=== PATIENT | female | born 1960 ===

== ENCOUNTER 2019-09-08 15:04 | Inpatient (IN) ==
[2019-09-08] MEDS ORDERED: ACETAMINOPHEN 325 MG TABLET PO PRN (20:04)
[2019-09-08] MEDS ORDERED: ONDANSETRON 4 MG/2 ML VIAL IV PRN (20:04)
[2019-09-08] MEDS ORDERED: GLUCAGON 1 MG VIAL IM PRN (20:04)
[2019-09-08] MEDS ORDERED: hydrALAZINE 20 MG/1 ML VIAL IV PRN (20:04)
[2019-09-08] MEDS ORDERED: DEXTROSE 50% 25 GM/50 ML VIAL IV PRN (20:04)
[2019-09-08] MEDS: HEPARIN 5,000 UNIT/1 ML VIAL SUBCUT SCH (22:26)
[2019-09-08] MEDS: INSULIN LISPRO 100 UNIT/ML SUBCUT SCH (22:26)
[2019-09-09 00:51] LABS: Apearance,Urine CLEAR (Clear); Bilirubin,Urine Negative (Negative); Blood, Urine Negative (Negative); Glucose,Urine (UA) Negative (Negative); Ketones,Urine Negative (Negative); Mucus,Urine Occasional /LPF (Occasional); Nitrite,Urine Negative (Negative); Protein,Urine 100 MG/DL; RBC,Urine 1 /HPF (0-4); Urine Color Straw (Yellow); Urine Specific Gravity 1.006 (1.001-1.035); Urine Urobilinogen < 2.0 EU/DL (0.2-1.0); WBC,Urine 1 /HPF (0-6)
[2019-09-09 01:45] LABS: Protein/Creatinine Ratio,Urine 3.6 RATIO
[2019-09-09 05:50] LABS: Basophils % 0.2 % (0.0-0.8); Eosinophils % 5.1 % (0.00-10.9); Hematocrit 23.3 VOL% (35.7-47.0); Hemoglobin 7.3 GM/DL (12.0-16.0); Immature Granulocytes % 0.4 %; Lymphocytes % 39.3 % (21.3-54.2); Mean Corpuscular HGB Conc 31.3 GM/DL (32-36); Mean Corpuscular Volume 100.9 FL (87-102); Mean Platelet Volume 11.2 FL (9.6-12.0); Monocytes % 7.3 % (1.7-12.7); Neutrophils % 47.7 % (38.7-73.9); Platelet Count 146 T/CUMM (130-400); Red Blood Count 2.31 MC/CUMM (3.8-5.5); Red Cell Distribution Width 15.4 % (9.3-17.3); White Blood Count 4.5 T/CUMM (4-12)
[2019-09-09 05:51] LABS: Eosinophils # 0.2 10*3/uL (0.0-0.87); Immature Granulocytes Absolute 0.02 #; Lymphocytes # 1.8 10*3/uL (1.4-4.0)
[2019-09-09 06:16] LABS: Calcium 7.3 MG/DL (8.5-10.1); Osmolality,Calculated 291.1 MOS/KG (273-304)
[2019-09-09] MEDS: INSULIN LISPRO 100 UNIT/ML SUBCUT SCH ×4 (09:10→21:15)
[2019-09-09] MEDS: HEPARIN 5,000 UNIT/1 ML VIAL SUBCUT SCH ×2 (09:10→20:19)
[2019-09-09] MEDS: PANTOPRAZOLE 40 MG TABLET PO SCH (09:10)
[2019-09-09] MEDS: amLODIPine 5 MG TABLET PO SCH (11:05)
[2019-09-10] MEDS: HEPARIN 5,000 UNIT/1 ML VIAL SUBCUT SCH ×2 (09:27→21:37)
[2019-09-10] MEDS: PANTOPRAZOLE 40 MG TABLET PO SCH (09:27)
[2019-09-10] MEDS: amLODIPine 5 MG TABLET PO SCH (09:28)
[2019-09-10] MEDS: INSULIN LISPRO 100 UNIT/ML SUBCUT SCH ×4 (10:07→21:40)
[2019-09-10 11:23] LABS: Basophils % 0.4 % (0.0-0.8); Eosinophils # 0.3 10*3/uL (0.0-0.87); Eosinophils % 5.4 % (0.00-10.9); Hematocrit 27.5 VOL% (35.7-47.0); Hemoglobin 8.5 GM/DL (12.0-16.0); Immature Granulocytes % 0.4 %; Immature Granulocytes Absolute 0.02 #; Lymphocytes # 1.5 10*3/uL (1.4-4.0); Lymphocytes % 30.1 % (21.3-54.2); Mean Corpuscular HGB Conc 30.9 GM/DL (32-36); Mean Platelet Volume 10.9 FL (9.6-12.0); Monocytes % 8.5 % (1.7-12.7); Neutrophils % 55.2 % (38.7-73.9); Platelet Count 167 T/CUMM (130-400); Red Blood Count 2.67 MC/CUMM (3.8-5.5); Red Cell Distribution Width 15.6 % (9.3-17.3); White Blood Count 4.8 T/CUMM (4-12)
[2019-09-10 13:03] LABS: % Iron Saturation 73.9 % (18-50); Ferritin 753.7 ng/ml (8-252)
[2019-09-10] MEDS: SODIUM CHLORIDE 0.9% 1,000 ML IV SCH (14:10)
[2019-09-10 16:41] LABS: Apearance,Urine CLEAR (Clear); Bacteria,Urine Occasional /HPF (Few); Bilirubin,Urine Negative (Negative); Blood, Urine Negative (Negative); Glucose,Urine (UA) Negative (Negative); Ketones,Urine Negative (Negative); Nitrite,Urine Negative (Negative); Protein,Urine 100 MG/DL; RBC,Urine <1 /HPF (0-4); Squamous Epithelial Cell,Urine Occasional /HPF (0-10); Urine Color Straw (Yellow); Urine Specific Gravity 1.008 (1.001-1.035); Urine Urobilinogen < 2.0 EU/DL (0.2-1.0); WBC,Urine 1 /HPF (0-6)
[2019-09-10 21:49] LABS: Folate 4.4 NG/ML (5.4-24.0)
[2019-09-11] MEDS: SODIUM CHLORIDE 0.9% 1,000 ML IV SCH ×2 (03:31→16:28)
[2019-09-11 05:16] LABS: Basophils % 0.5 % (0.0-0.8); Eosinophils # 0.3 10*3/uL (0.0-0.87); Eosinophils % 6.2 % (0.00-10.9); Hematocrit 22.6 VOL% (35.7-47.0); Hemoglobin 7.1 GM/DL (12.0-16.0); Immature Granulocytes % 0.2 %; Immature Granulocytes Absolute 0.01 #; Lymphocytes # 1.6 10*3/uL (1.4-4.0); Lymphocytes % 38.7 % (21.3-54.2); Mean Corpuscular HGB Conc 31.4 GM/DL (32-36); Mean Corpuscular Volume 101.3 FL (87-102); Mean Platelet Volume 10.7 FL (9.6-12.0); Monocytes % 6.7 % (1.7-12.7); Neutrophils % 47.7 % (38.7-73.9); Platelet Count 124 T/CUMM (130-400); Red Blood Count 2.23 MC/CUMM (3.8-5.5); Red Cell Distribution Width 15.3 % (9.3-17.3)
[2019-09-11 05:42] LABS: Risk Ratio 3.42; VLDL CHOLESTEROL 28.4 MG/DL
[2019-09-11 06:16] LABS: Calcium 7.2 MG/DL (8.5-10.1); Osmolality,Calculated 288.3 MOS/KG (273-304)
[2019-09-11 06:36] LABS: Platelet Estimate Adequate
[2019-09-11 06:37] LABS: Anisocytosis 2+; Ovalocytes Few; Poikilocytosis Slight
[2019-09-11] MEDS: INSULIN LISPRO 100 UNIT/ML SUBCUT SCH ×4 (07:22→22:29)
[2019-09-11] MEDS: HEPARIN 5,000 UNIT/1 ML VIAL SUBCUT SCH ×2 (09:04→20:45)
[2019-09-11] MEDS: PANTOPRAZOLE 40 MG TABLET PO SCH (09:04)
[2019-09-11] MEDS: amLODIPine 5 MG TABLET PO SCH (09:04)
[2019-09-11] MEDS: DILTIAZEM CD 240 MG CAPSULE PO SCH (09:04)
[2019-09-11] MEDS ORDERED: SODIUM CHLORIDE 0.9% 1,000 ML IV PRN (12:25)
[2019-09-11 12:45] LABS: Free T4 (Free Thyroxine) 1.08 NG/DL (0.76-1.46)
[2019-09-11] MEDS: FOLIC ACID 1 MG TABLET PO SCH (13:55)
[2019-09-12 02:04] LABS: Hemoglobin 10.4 GM/DL (12.0-16.0)
[2019-09-12 04:04] LABS: Basophils % 0.6 % (0.0-0.8); Eosinophils # 0.3 10*3/uL (0.0-0.87); Eosinophils % 5.8 % (0.00-10.9); Hematocrit 29.4 VOL% (35.7-47.0); Hemoglobin 9.8 GM/DL (12.0-16.0); Immature Granulocytes % 0.4 %; Immature Granulocytes Absolute 0.02 #; Lymphocytes # 1.7 10*3/uL (1.4-4.0); Lymphocytes % 34.5 % (21.3-54.2); Mean Corpuscular HGB Conc 33.3 GM/DL (32-36); Mean Corpuscular Volume 97.7 FL (87-102); Mean Platelet Volume 10.9 FL (9.6-12.0); Monocytes % 8.2 % (1.7-12.7); Neutrophils % 50.5 % (38.7-73.9); Platelet Count 113 T/CUMM (130-400); Red Blood Count 3.01 MC/CUMM (3.8-5.5)
[2019-09-12 04:15] LABS: Calcium 7.3 MG/DL (8.5-10.1); Osmolality,Calculated 290.1 MOS/KG (273-304)
[2019-09-12 04:47] LABS: Hypochromasia 1+; Platelet Estimate Decreased
[2019-09-12] MEDS: INSULIN LISPRO 100 UNIT/ML SUBCUT SCH ×2 (08:48→12:26)
[2019-09-12] MEDS ORDERED: FUROSEMIDE 20 MG/2 ML VIAL IV ONE (09:08)
[2019-09-12] MEDS: DILTIAZEM CD 240 MG CAPSULE PO SCH (09:41)
[2019-09-12] MEDS: FOLIC ACID 1 MG TABLET PO SCH (09:41)
[2019-09-12] MEDS: amLODIPine 5 MG TABLET PO SCH (09:41)
[2019-09-12] MEDS: PANTOPRAZOLE 40 MG TABLET PO SCH (09:41)
[2019-09-12] MEDS ORDERED: CALCIUM GLUCONATE 1,000 MG in SODIUM CHLORIDE 0.9% 100 ML IV ONE (10:09)
[2019-09-12] MEDS: HEPARIN 5,000 UNIT/1 ML VIAL SUBCUT SCH (10:11)
[2019-09-12 12:37] VITALS: BP 160/79
== END 2019-09-12 15:51 | disposition home or self-care (01) | DRG 639 ==
LOC: N.TELES 18:47 → SUATTDRO 18:47
PROVIDERS: ADMIT Internal Medicine; ATTEND Internal Medicine

== ENCOUNTER 2019-12-24 18:17 | Inpatient (IN) ==
[2019-12-24] MEDS ORDERED: PNEUMOCOCCAL VACCINE (13 VALENT) 0.5 ML SYRINGE IM ONE (20:13)
[2019-12-24] MEDS ORDERED: INFLUENZA VIRUS VACCINE 0.5 ML SYRINGE IM ONE (20:13)
[2019-12-24] MEDS ORDERED: guaiFENesin/DM ER 600-30 MG TABLET PO PRN (21:47)
[2019-12-24] MEDS ORDERED: ACETAMINOPHEN 325 MG TABLET PO PRN (21:47)
[2019-12-24] MEDS ORDERED: NICOTINE 21 MG/24 HR PATCH TRANSDERM PRN (21:47)
[2019-12-24] MEDS ORDERED: diphenhydrAMINE CAP 25 MG CAPSULE PO PRN (21:47)
[2019-12-24] MEDS ORDERED: DEXTROSE 50% 25 GM/50 ML VIAL IV PRN (21:47)
[2019-12-24] MEDS ORDERED: MORPHINE 4 MG/1 ML VIAL IV PRN (21:47)
[2019-12-24] MEDS ORDERED: ONDANSETRON 4 MG/2 ML VIAL IV PRN (21:47)
[2019-12-24] MEDS ORDERED: GLUCAGON 1 MG VIAL IM PRN (21:47)
[2019-12-24 22:22] LABS: Basophils % 0.2 % (0.0-0.8); Eosinophils # 0.3 10*3/uL (0.0-0.87); Eosinophils % 5.3 % (0.00-10.9); Hematocrit 19.1 VOL% (35.7-47.0); Immature Granulocytes % 0.8 %; Immature Granulocytes Absolute 0.04 #; Lymphocytes # 1.3 10*3/uL (1.4-4.0); Lymphocytes % 26.9 % (21.3-54.2); Mean Corpuscular HGB Conc 32.5 GM/DL (32-36); Mean Corpuscular Volume 103.8 FL (87-102); Mean Platelet Volume 10.7 FL (9.6-12.0); Monocytes % 4.4 % (1.7-12.7); Neutrophils % 62.4 % (38.7-73.9); Platelet Count 130 T/CUMM (130-400); Red Blood Count 1.84 MC/CUMM (3.8-5.5); Red Cell Distribution Width 15.9 % (9.3-17.3); White Blood Count 4.8 T/CUMM (4-12)
[2019-12-24 22:29] LABS: Hemoglobin 6.2 GM/DL (12.0-16.0)
[2019-12-24] MEDS ORDERED: SODIUM CHLORIDE 0.9% 1,000 ML IV PRN (22:39)
[2019-12-24 22:42] LABS: Albumin 2.4 G/DL (3.4-5.0); Bilirubin,Total 0.8 MG/DL (0.2-1.0); Calcium 7.4 MG/DL (8.5-10.1); Osmolality,Calculated 289.5 MOS/KG (273-304); Total Protein 7.7 G/DL (6.4-8.3)
[2019-12-24] MEDS ORDERED: FUROSEMIDE 20 MG/2 ML VIAL IV ONE (22:43)
[2019-12-24] MEDS: PANTOPRAZOLE 40 MG VIAL IV SCH (22:45)
[2019-12-24 22:57] LABS: Folate 13.6 NG/ML (5.4-24.0); Vitamin B12 290 PG/ML (211-911)
[2019-12-24 23:11] LABS: Hypochromasia 2+
[2019-12-24 23:13] LABS: Platelet Estimate Decreased
[2019-12-24 23:31] LABS: Sedimentation Rate-Westergren 133 MM/HR (0-30)
[2019-12-25] MEDS ORDERED: DEXTROSE 50% 25 GM/50 ML VIAL IV PRN (04:50)
[2019-12-25] MEDS: hydrALAZINE 20 MG/1 ML VIAL IV PRN ×3 (05:17→20:43)
[2019-12-25] MEDS: INSULIN REGULAR 100 UNIT/ML SUBCUT SCH ×4 (07:54→20:16)
[2019-12-25] MEDS: PANTOPRAZOLE 40 MG VIAL IV SCH ×2 (09:35→20:42)
[2019-12-25 12:30] LABS: Hematocrit 33.6 VOL% (35.7-47.0)
[2019-12-25 12:33] LABS: Hemoglobin 11.2 GM/DL (12.0-16.0)
[2019-12-26 05:43] LABS: Basophils % 0.2 % (0.0-0.8); Eosinophils # 0.2 10*3/uL (0.0-0.87); Eosinophils % 4.1 % (0.00-10.9); Hematocrit 29.2 VOL% (35.7-47.0); Hemoglobin 9.7 GM/DL (12.0-16.0); Immature Granulocytes % 0.4 %; Immature Granulocytes Absolute 0.02 #; Lymphocytes # 1.2 10*3/uL (1.4-4.0); Lymphocytes % 25.4 % (21.3-54.2); Mean Corpuscular HGB Conc 33.2 GM/DL (32-36); Mean Corpuscular Volume 94.8 FL (87-102); Mean Platelet Volume 10.9 FL (9.6-12.0); Monocytes % 6.7 % (1.7-12.7); Neutrophils % 63.2 % (38.7-73.9); Platelet Count 111 T/CUMM (130-400); Red Blood Count 3.08 MC/CUMM (3.8-5.5); Red Cell Distribution Width 18.6 % (9.3-17.3); White Blood Count 4.6 T/CUMM (4-12)
[2019-12-26 06:09] LABS: Hypochromasia Slight
[2019-12-26 06:10] LABS: Macrocytosis 1+; Platelet Estimate Decreased
[2019-12-26 07:09] LABS: Calcium 7.4 MG/DL (8.5-10.1); Osmolality,Calculated 289.4 MOS/KG (273-304)
[2019-12-26] MEDS: INSULIN REGULAR 100 UNIT/ML SUBCUT SCH ×4 (07:38→21:25)
[2019-12-26] MEDS ORDERED: SODIUM CHLORIDE 0.9% 500 ML IV SCH (07:50)
[2019-12-26 08:22] LABS: Hemoglobin A1 (Alkaline) 97.4 % (96.5-98.5); Hemoglobin A2 (Alkaline) 2.6 % (1.5-3.5)
[2019-12-26] MEDS ORDERED: propofoL 200 MG/20 ML VIAL IV ONE (08:46)
[2019-12-26] MEDS ORDERED: LIDOCAINE 2% 5 ML VIAL ONE (08:46)
[2019-12-26] MEDS ORDERED: MAGNESIUM SULF RIDER 4 GM in PREMIX 1 EACH IV ONE (10:00)
[2019-12-26] MEDS: BISACODYL 5 MG TABLET PO SCH ×2 (10:19→18:53)
[2019-12-26] MEDS: PANTOPRAZOLE 40 MG TABLET PO SCH (10:19)
[2019-12-26] MEDS: hydrALAZINE 20 MG/1 ML VIAL IV PRN (15:05)
[2019-12-26] MEDS ORDERED: POLYETHYLENE GLYCOL 3350/ELECTROLYTES 4,000 ML BOTTLE PO ONE (18:00)
[2019-12-26] MEDS ORDERED: MAGNESIUM CITRATE 300 ML BOTTLE PO ONE (21:00)
[2019-12-27] MEDS: hydrALAZINE 20 MG/1 ML VIAL IV PRN (01:19)
[2019-12-27] MEDS: BISACODYL 5 MG TABLET PO SCH (01:59)
[2019-12-27 06:00] LABS: Basophils % 0.4 % (0.0-0.8); Eosinophils # 0.2 10*3/uL (0.0-0.87); Eosinophils % 2.8 % (0.00-10.9); Hematocrit 34.8 VOL% (35.7-47.0); Hemoglobin 11.5 GM/DL (12.0-16.0); Immature Granulocytes % 0.6 %; Immature Granulocytes Absolute 0.03 #; Lymphocytes # 0.9 10*3/uL (1.4-4.0); Lymphocytes % 16.4 % (21.3-54.2); Mean Corpuscular Volume 94.3 FL (87-102); Mean Platelet Volume 10.7 FL (9.6-12.0); Neutrophils % 72.8 % (38.7-73.9); Platelet Count 122 T/CUMM (130-400); Red Blood Count 3.69 MC/CUMM (3.8-5.5); Red Cell Distribution Width 18.6 % (9.3-17.3); White Blood Count 5.4 T/CUMM (4-12)
[2019-12-27 06:21] LABS: Calcium 8.5 MG/DL (8.5-10.1); Osmolality,Calculated 278.1 MOS/KG (273-304)
[2019-12-27 06:23] LABS: Platelet Estimate Adequate
[2019-12-27 06:24] LABS: Macrocytosis Slight
[2019-12-27] MEDS: INSULIN REGULAR 100 UNIT/ML SUBCUT SCH (08:05)
[2019-12-27 08:30] VITALS: BP 202/98
[2019-12-27] MEDS: PANTOPRAZOLE 40 MG TABLET PO SCH (09:37)
== END 2019-12-27 11:30 | disposition home or self-care (01) | DRG 812 ==
LOC: N.3E 19:44 → SUATTDRO 19:44 → INTOOBSV 19:44
PROVIDERS: ADMIT Internal Medicine; ATTEND Internal Medicine

== ENCOUNTER 2020-04-14 19:17 | Inpatient (IN) ==
[2020-04-14] MEDS ORDERED: SODIUM CHLORIDE 0.9% 1,000 ML IV PRN (21:10)
[2020-04-14] MEDS ORDERED: MAGNESIUM SULF RIDER 2 GM in PREMIX 1 EACH IV PRN (21:18)
[2020-04-14] MEDS ORDERED: MAGNESIUM SULF RIDER 4 GM in PREMIX 1 EACH IV PRN (21:18)
[2020-04-14] MEDS ORDERED: BISACODYL 5 MG TABLET PO PRN (21:21)
[2020-04-14] MEDS ORDERED: ALBUTEROL 2.5 MG/3 ML NEB RESP TX PRN (21:21)
[2020-04-14] MEDS ORDERED: guaiFENesin/DM ER 600-30 MG TABLET PO PRN (21:21)
[2020-04-14] MEDS ORDERED: MORPHINE 4 MG/1 ML VIAL IV PRN (21:21)
[2020-04-14] MEDS ORDERED: diphenhydrAMINE CAP 25 MG CAPSULE PO PRN (21:21)
[2020-04-14] MEDS ORDERED: ONDANSETRON 4 MG/2 ML VIAL IV PRN (21:21)
[2020-04-14] MEDS ORDERED: ACETAMINOPHEN 325 MG TABLET PO PRN (21:21)
[2020-04-14] MEDS ORDERED: NICOTINE 21 MG/24 HR PATCH TRANSDERM PRN (21:21)
[2020-04-14] MEDS ORDERED: ZALEPLON 5 MG CAPSULE PO PRN (21:21)
[2020-04-14] MEDS ORDERED: ALUMINUM/MAGNES/SIMETH MAX STR 30 ML UDCUP PO PRN (21:21)
[2020-04-14] MEDS ORDERED: hydrALAZINE 20 MG/1 ML VIAL IV PRN (21:21)
[2020-04-14] MEDS ORDERED: DEXTROSE 50% 25 GM/50 ML VIAL IV PRN ×2 (21:21)
[2020-04-14] MEDS ORDERED: GLUCAGON 1 MG VIAL IM PRN ×2 (21:21)
[2020-04-14 22:20] LABS: Basophils % 0.4 % (0.0-0.8); Eosinophils # 0.2 10*3/uL (0.0-0.87); Eosinophils % 4.1 % (0.00-10.9); Hematocrit 23.2 VOL% (35.7-47.0); Hemoglobin 7.4 GM/DL (12.0-16.0); Immature Granulocytes % 0.4 %; Immature Granulocytes Absolute 0.02 #; Lymphocytes # 1.5 10*3/uL (1.4-4.0); Mean Corpuscular HGB Conc 31.9 GM/DL (32-36); Monocytes % 6.1 % (1.7-12.7); Platelet Count 131 T/CUMM (130-400); Red Blood Count 2.23 MC/CUMM (3.8-5.5); Red Cell Distribution Width 14.8 % (9.3-17.3); White Blood Count 4.9 T/CUMM (4-12)
[2020-04-14 22:34] LABS: Calcium 7.1 MG/DL (8.5-10.1); Osmolality,Calculated 302.4 MOS/KG (273-304); Potassium 4.5 MMOL/L (3.5-5.1)
[2020-04-14 22:50] LABS: Ferritin 1076.4 ng/ml (8-252)
[2020-04-14 23:07] LABS: Folate 19.8 NG/ML (5.38-24.0)
[2020-04-15 01:23] LABS: Bacteria,Urine Occasional /HPF (Few); Bilirubin,Urine Negative (Negative); Blood, Urine Negative (Negative); Glucose,Urine (UA) Negative (Negative); Ketones,Urine Negative (Negative); Nitrite,Urine Negative (Negative); Protein,Urine 100 MG/DL; RBC,Urine 2 /HPF (0-4); Squamous Epithelial Cell,Urine Occasional /HPF (0-10); Urine Appearance CLEAR (Clear); Urine Color Yellow (Yellow); Urine Urobilinogen < 2.0 EU/DL (0.2-1.0); WBC,Urine 2 /HPF (0-6)
[2020-04-15 06:13] LABS: Basophils % 0.4 % (0.0-0.8); Eosinophils # 0.3 10*3/uL (0.0-0.87); Eosinophils % 5.8 % (0.00-10.9); Hematocrit 22.8 VOL% (35.7-47.0); Hemoglobin 7.6 GM/DL (12.0-16.0); Immature Granulocytes % 0.4 %; Immature Granulocytes Absolute 0.02 #; Lymphocytes # 1.7 10*3/uL (1.4-4.0); Lymphocytes % 35.5 % (21.3-54.2); Mean Corpuscular HGB Conc 33.3 GM/DL (32-36); Mean Corpuscular Volume 100.9 FL (87-102); Mean Platelet Volume 10.9 FL (9.6-12.0); Monocytes % 7.9 % (1.7-12.7); Platelet Count 113 T/CUMM (130-400); Red Blood Count 2.26 MC/CUMM (3.8-5.5); Red Cell Distribution Width 15.6 % (9.3-17.3); White Blood Count 4.8 T/CUMM (4-12)
[2020-04-15 06:56] LABS: Albumin 2.1 G/DL (3.4-5.0); Bilirubin,Total 0.4 MG/DL (0.2-1.0); Osmolality,Calculated 303.3 MOS/KG (273-304); Potassium 4.2 MMOL/L (3.5-5.1); Total Protein 7.9 G/DL (5.0-7.5)
[2020-04-15] MEDS: DILTIAZEM CD 240 MG CAPSULE PO SCH (08:24)
[2020-04-15] MEDS: PANTOPRAZOLE 40 MG TABLET PO SCH (08:25)
[2020-04-15] MEDS: INSULIN LISPRO 100 UNIT/ML SUBCUT SCH ×4 (09:46→20:50)
[2020-04-15] MEDS: BRIMONIDINE 0.2% OPH SOLN 5 ML BOTTLE BOTH EYES SCH ×2 (13:09→20:45)
[2020-04-15] MEDS: hydrALAZINE 25 MG TABLET PO SCH ×3 (14:22→20:41)
[2020-04-15] MEDS: prednisoLONE ACETATE 1% OPH SUSP 5 ML BOTTLE LEFT EYE SCH ×3 (14:23→20:46)
[2020-04-15] MEDS: SODIUM BICARBONATE 650 MG TABLET PO SCH ×2 (17:34→20:41)
[2020-04-15] MEDS: FERROUS SULFATE 325 MG TABLET PO SCH (20:41)
[2020-04-15] MEDS: SIMVASTATIN 10 MG TABLET PO SCH (20:41)
[2020-04-15] MEDS: carvediloL 3.125 MG TABLET PO SCH (20:41)
[2020-04-15] MEDS: DORZOLAMIDE/TIMOLOL OPH SOLN 10 ML BOTTLE BOTH EYES SCH (20:45)
[2020-04-15] MEDS: LATANOPROST 0.005% OPH SOLN 2.5 ML BOTTLE BOTH EYES SCH (20:46)
[2020-04-16] MEDS: BRIMONIDINE 0.2% OPH SOLN 5 ML BOTTLE BOTH EYES SCH ×4 (01:29→21:20)
[2020-04-16 05:08] LABS: Basophils % 0.3 % (0.0-0.8); Eosinophils # 0.2 10*3/uL (0.0-0.87); Eosinophils % 5.3 % (0.00-10.9); Hematocrit 21.4 VOL% (35.7-47.0); Immature Granulocytes % 0.5 %; Immature Granulocytes Absolute 0.02 #; Lymphocytes # 1.4 10*3/uL (1.4-4.0); Lymphocytes % 34.9 % (21.3-54.2); Mean Corpuscular HGB Conc 32.7 GM/DL (32-36); Mean Corpuscular Volume 98.6 FL (87-102); Mean Platelet Volume 10.8 FL (9.6-12.0); Monocytes % 7.8 % (1.7-12.7); Neutrophils % 51.2 % (38.7-73.9); Platelet Count 105 T/CUMM (130-400); Red Blood Count 2.17 MC/CUMM (3.8-5.5); Red Cell Distribution Width 15.8 % (9.3-17.3)
[2020-04-16 05:27] LABS: % Iron Saturation 66.1 % (18-50)
[2020-04-16 05:32] LABS: Calcium 7.3 MG/DL (8.5-10.1); Osmolality,Calculated 302.4 MOS/KG (273-304); Potassium 4.3 MMOL/L (3.5-5.1)
[2020-04-16] MEDS: INSULIN LISPRO 100 UNIT/ML SUBCUT SCH ×4 (07:37→21:26)
[2020-04-16] MEDS ORDERED: SODIUM CHLORIDE 0.9% 1,000 ML IV PRN (07:44)
[2020-04-16] MEDS ORDERED: CHLORTHALIDONE 25 MG TABLET PO SCH (09:00)
[2020-04-16] MEDS: SODIUM BICARBONATE 650 MG TABLET PO SCH ×3 (09:11→21:19)
[2020-04-16] MEDS: CALCIUM (CARBONATE)/VITAMIN D 500 MG-200 UNIT TABLET PO SCH (09:11)
[2020-04-16] MEDS: PANTOPRAZOLE 40 MG TABLET PO SCH (09:11)
[2020-04-16] MEDS: FERROUS SULFATE 325 MG TABLET PO SCH ×2 (09:11→21:19)
[2020-04-16] MEDS: DILTIAZEM CD 240 MG CAPSULE PO SCH (09:11)
[2020-04-16] MEDS: hydrALAZINE 25 MG TABLET PO SCH ×4 (09:11→21:19)
[2020-04-16] MEDS: FOLIC ACID 1 MG TABLET PO SCH (09:12)
[2020-04-16] MEDS: DORZOLAMIDE/TIMOLOL OPH SOLN 10 ML BOTTLE BOTH EYES SCH ×2 (09:12→21:19)
[2020-04-16] MEDS: carvediloL 3.125 MG TABLET PO SCH ×2 (09:12→21:19)
[2020-04-16] MEDS: MULTIVITAMIN (CENTRUM) TABLET PO SCH (09:12)
[2020-04-16] MEDS: prednisoLONE ACETATE 1% OPH SUSP 5 ML BOTTLE LEFT EYE SCH ×4 (10:29→21:26)
[2020-04-16] MEDS ORDERED: EPOETIN ALFA-EPBX 10,000 UNIT/ML VIAL SUBCUT ONE ×2 (10:47→14:30)
[2020-04-16] MEDS: LATANOPROST 0.005% OPH SOLN 2.5 ML BOTTLE BOTH EYES SCH (21:19)
[2020-04-16] MEDS: SIMVASTATIN 10 MG TABLET PO SCH (21:19)
[2020-04-17 05:34] LABS: Basophils % 0.2 % (0.0-0.8); Eosinophils # 0.2 10*3/uL (0.0-0.87); Eosinophils % 4.8 % (0.00-10.9); Hematocrit 23.4 VOL% (35.7-47.0); Hemoglobin 7.9 GM/DL (12.0-16.0); Immature Granulocytes % 0.5 %; Immature Granulocytes Absolute 0.02 #; Lymphocytes # 1.5 10*3/uL (1.4-4.0); Lymphocytes % 33.8 % (21.3-54.2); Mean Corpuscular HGB Conc 33.8 GM/DL (32-36); Mean Corpuscular Volume 97.5 FL (87-102); Mean Platelet Volume 11.2 FL (9.6-12.0); Monocytes % 9.1 % (1.7-12.7); Neutrophils % 51.6 % (38.7-73.9); Platelet Count 44 T/CUMM (130-400); Red Cell Distribution Width 16.3 % (9.3-17.3); White Blood Count 4.4 T/CUMM (4-12)
[2020-04-17 05:55] LABS: Hypochromasia Slight
[2020-04-17 05:56] LABS: Microcytosis 1+; Ovalocytes Slight
[2020-04-17 06:06] LABS: Calcium 7.3 MG/DL (8.5-10.1); Osmolality,Calculated 302.4 MOS/KG (273-304); Potassium 4.7 MMOL/L (3.5-5.1)
[2020-04-17] MEDS: INSULIN LISPRO 100 UNIT/ML SUBCUT SCH ×3 (07:00→15:37)
[2020-04-17] MEDS: FOLIC ACID 1 MG TABLET PO SCH (08:43)
[2020-04-17] MEDS: carvediloL 3.125 MG TABLET PO SCH ×2 (08:43→20:15)
[2020-04-17] MEDS: DORZOLAMIDE/TIMOLOL OPH SOLN 10 ML BOTTLE BOTH EYES SCH ×2 (08:44→20:15)
[2020-04-17] MEDS: prednisoLONE ACETATE 1% OPH SUSP 5 ML BOTTLE LEFT EYE SCH ×4 (08:44→20:15)
[2020-04-17] MEDS: PANTOPRAZOLE 40 MG TABLET PO SCH (08:44)
[2020-04-17] MEDS: MULTIVITAMIN (CENTRUM) TABLET PO SCH (08:44)
[2020-04-17] MEDS: SODIUM BICARBONATE 650 MG TABLET PO SCH ×3 (08:44→20:14)
[2020-04-17] MEDS: DILTIAZEM CD 240 MG CAPSULE PO SCH (08:44)
[2020-04-17] MEDS: hydrALAZINE 25 MG TABLET PO SCH ×4 (08:44→20:15)
[2020-04-17] MEDS: FERROUS SULFATE 325 MG TABLET PO SCH ×2 (08:44→20:14)
[2020-04-17] MEDS: BRIMONIDINE 0.2% OPH SOLN 5 ML BOTTLE BOTH EYES SCH ×3 (08:45→20:15)
[2020-04-17] MEDS: CALCIUM (CARBONATE)/VITAMIN D 500 MG-200 UNIT TABLET PO SCH (10:42)
[2020-04-17] MEDS: SIMVASTATIN 10 MG TABLET PO SCH (20:14)
[2020-04-17] MEDS: LATANOPROST 0.005% OPH SOLN 2.5 ML BOTTLE BOTH EYES SCH (20:15)
[2020-04-18] MEDS: INSULIN LISPRO 100 UNIT/ML SUBCUT SCH ×5 (01:52→21:07)
[2020-04-18 05:18] LABS: Basophils % 0.2 % (0.0-0.8); Eosinophils # 0.2 10*3/uL (0.0-0.87); Eosinophils % 3.9 % (0.00-10.9); Hematocrit 23.9 VOL% (35.7-47.0); Hemoglobin 7.5 GM/DL (12.0-16.0); Immature Granulocytes % 0.9 %; Immature Granulocytes Absolute 0.04 #; Lymphocytes # 1.4 10*3/uL (1.4-4.0); Mean Corpuscular HGB Conc 31.4 GM/DL (32-36); Mean Corpuscular Volume 101.7 FL (87-102); Mean Platelet Volume 10.5 FL (9.6-12.0); Monocytes % 8.4 % (1.7-12.7); Neutrophils % 56.6 % (38.7-73.9); Platelet Count 102 T/CUMM (130-400); Red Blood Count 2.35 MC/CUMM (3.8-5.5); Red Cell Distribution Width 16.6 % (9.3-17.3); White Blood Count 4.7 T/CUMM (4-12)
[2020-04-18 05:44] LABS: Calcium 7.6 MG/DL (8.5-10.1); Osmolality,Calculated 303.5 MOS/KG (273-304); Potassium 5.1 MMOL/L (3.5-5.1)
[2020-04-18] MEDS: hydrALAZINE 25 MG TABLET PO SCH ×4 (09:21→21:07)
[2020-04-18] MEDS: FOLIC ACID 1 MG TABLET PO SCH (09:21)
[2020-04-18] MEDS: BRIMONIDINE 0.2% OPH SOLN 5 ML BOTTLE BOTH EYES SCH ×3 (09:21→21:06)
[2020-04-18] MEDS: carvediloL 3.125 MG TABLET PO SCH ×2 (09:22→21:07)
[2020-04-18] MEDS: MULTIVITAMIN (CENTRUM) TABLET PO SCH (09:22)
[2020-04-18] MEDS: DILTIAZEM CD 240 MG CAPSULE PO SCH (09:22)
[2020-04-18] MEDS: DORZOLAMIDE/TIMOLOL OPH SOLN 10 ML BOTTLE BOTH EYES SCH ×2 (09:23→21:07)
[2020-04-18] MEDS: FERROUS SULFATE 325 MG TABLET PO SCH ×2 (09:23→21:07)
[2020-04-18] MEDS: CALCIUM (CARBONATE)/VITAMIN D 500 MG-200 UNIT TABLET PO SCH (09:23)
[2020-04-18] MEDS: SODIUM BICARBONATE 650 MG TABLET PO SCH ×3 (09:24→21:07)
[2020-04-18] MEDS: prednisoLONE ACETATE 1% OPH SUSP 5 ML BOTTLE LEFT EYE SCH ×4 (09:24→21:07)
[2020-04-18] MEDS: PANTOPRAZOLE 40 MG TABLET PO SCH (09:24)
[2020-04-18] MEDS ORDERED: SODIUM CHLORIDE 0.9% 1,000 ML IV PRN (09:56)
[2020-04-18 20:56] LABS: Hematocrit 28.2 VOL% (35.7-47.0)
[2020-04-18 20:57] LABS: Hemoglobin 9.2 GM/DL (12.0-16.0)
[2020-04-18] MEDS: LATANOPROST 0.005% OPH SOLN 2.5 ML BOTTLE BOTH EYES SCH (21:07)
[2020-04-18] MEDS: SIMVASTATIN 10 MG TABLET PO SCH (21:07)
[2020-04-19 05:17] LABS: Basophils % 0.5 % (0.0-0.8); Eosinophils # 0.2 10*3/uL (0.0-0.87); Eosinophils % 5.3 % (0.00-10.9); Hematocrit 26.7 VOL% (35.7-47.0); Hemoglobin 8.7 GM/DL (12.0-16.0); Immature Granulocytes % 0.7 %; Immature Granulocytes Absolute 0.03 #; Lymphocytes # 1.5 10*3/uL (1.4-4.0); Lymphocytes % 35.4 % (21.3-54.2); Mean Corpuscular HGB Conc 32.6 GM/DL (32-36); Mean Corpuscular Volume 96.4 FL (87-102); Mean Platelet Volume 10.3 FL (9.6-12.0); Monocytes % 9.2 % (1.7-12.7); Neutrophils % 48.9 % (38.7-73.9); Red Blood Count 2.77 MC/CUMM (3.8-5.5); Red Cell Distribution Width 16.2 % (9.3-17.3); White Blood Count 4.1 T/CUMM (4-12)
[2020-04-19 05:18] LABS: Platelet Count 96 T/CUMM (130-400)
[2020-04-19 05:35] LABS: Hypochromasia 1+; Microcytosis 1+; Platelet Estimate Decreased
[2020-04-19 05:36] LABS: Calcium 7.1 MG/DL (8.5-10.1); Osmolality,Calculated 303.5 MOS/KG (273-304); Potassium 4.7 MMOL/L (3.5-5.1)
[2020-04-19 05:43] LABS: Ferritin 909.2 ng/ml (8-252)
[2020-04-19] MEDS: INSULIN LISPRO 100 UNIT/ML SUBCUT SCH ×3 (07:17→15:57)
[2020-04-19] MEDS: FOLIC ACID 1 MG TABLET PO SCH (09:39)
[2020-04-19] MEDS: hydrALAZINE 25 MG TABLET PO SCH ×3 (09:39→16:57)
[2020-04-19] MEDS: DILTIAZEM CD 240 MG CAPSULE PO SCH (09:40)
[2020-04-19] MEDS: FERROUS SULFATE 325 MG TABLET PO SCH (09:40)
[2020-04-19] MEDS: MULTIVITAMIN (CENTRUM) TABLET PO SCH (09:40)
[2020-04-19] MEDS: carvediloL 3.125 MG TABLET PO SCH (09:40)
[2020-04-19] MEDS: CALCIUM (CARBONATE)/VITAMIN D 500 MG-200 UNIT TABLET PO SCH (09:41)
[2020-04-19] MEDS: PANTOPRAZOLE 40 MG TABLET PO SCH (09:41)
[2020-04-19] MEDS: SODIUM BICARBONATE 650 MG TABLET PO SCH ×2 (09:41→15:05)
[2020-04-19] MEDS: DORZOLAMIDE/TIMOLOL OPH SOLN 10 ML BOTTLE BOTH EYES SCH (09:48)
[2020-04-19] MEDS: prednisoLONE ACETATE 1% OPH SUSP 5 ML BOTTLE LEFT EYE SCH ×3 (09:48→16:57)
[2020-04-19] MEDS: BRIMONIDINE 0.2% OPH SOLN 5 ML BOTTLE BOTH EYES SCH ×2 (09:49→15:05)
[2020-04-19 16:33] VITALS: BP 147/60
== END 2020-04-19 17:55 | disposition home or self-care (01) | DRG 683 ==
LOC: N.3E → SUATTDRO 21:22
PROVIDERS: ADMIT Internal Medicine; ATTEND Internal Medicine

== ENCOUNTER 2020-07-20 23:17 | Observation (INO) ==
[2020-07-21] MEDS ORDERED: hydrALAZINE 20 MG/1 ML VIAL IV PRN (03:05)
[2020-07-21] MEDS ORDERED: MORPHINE 4 MG/1 ML VIAL IV PRN (03:05)
[2020-07-21] MEDS ORDERED: DEXTROSE 50% 25 GM/50 ML VIAL IV PRN (03:05)
[2020-07-21] MEDS ORDERED: GLUCAGON 1 MG VIAL IM PRN (03:05)
[2020-07-21] MEDS ORDERED: ACETAMINOPHEN 325 MG TABLET PO PRN (03:05)
[2020-07-21] MEDS ORDERED: ONDANSETRON 4 MG/2 ML VIAL IV PRN (03:05)
[2020-07-21] MEDS ORDERED: diphenhydrAMINE CAP 25 MG CAPSULE PO PRN (03:05)
[2020-07-21] MEDS ORDERED: guaiFENesin/DM ER 600-30 MG TABLET PO PRN (03:05)
[2020-07-21] MEDS ORDERED: NICOTINE 21 MG/24 HR PATCH TRANSDERM PRN (03:05)
[2020-07-21 06:02] LABS: Basophils % 0.2 % (0.0-0.8); Eosinophils # 0.2 10*3/uL (0.0-0.87); Eosinophils % 3.7 % (0.00-10.9); Hemoglobin 9.9 GM/DL (12.0-16.0); Immature Granulocytes % 0.6 %; Immature Granulocytes Absolute 0.03 #; Lymphocytes # 1.9 10*3/uL (1.4-4.0); Lymphocytes % 37.3 % (21.3-54.2); Mean Corpuscular HGB Conc 31.9 GM/DL (32-36); Mean Corpuscular Volume 105.4 FL (87-102); Mean Platelet Volume 11.4 FL (9.6-12.0); Monocytes % 13.9 % (1.7-12.7); NRBC # 0.02 10*3/uL; Neutrophils % 44.3 % (38.7-73.9); Platelet Count 130 T/CUMM (130-400); Red Blood Count 2.94 MC/CUMM (3.8-5.5); Red Cell Distribution Width 17.7 % (9.3-17.3); White Blood Count 5.2 T/CUMM (4-12)
[2020-07-21 06:26] LABS: Albumin 2.4 G/DL (3.4-5.0); Bilirubin,Total 0.4 MG/DL (0.2-1.0); Calcium 8.1 MG/DL (8.5-10.1); Osmolality,Calculated 282.7 MOS/KG (273-304); Potassium 3.1 MMOL/L (3.5-5.1); Total Protein 8.3 G/DL (6.4-8.2)
[2020-07-21 06:37] LABS: Anisocytosis 1+; Hypochromasia 1+; Polychromasia Slight
[2020-07-21 06:38] LABS: Platelet Estimate Adequate; Target Cells Slight
[2020-07-21 06:39] LABS: Macrocytosis 1+
[2020-07-21] MEDS: ALBUTEROL/IPRATROPIUM 3 ML NEB RESP TX SCH ×3 (07:38→19:50)
[2020-07-21] MEDS: DILTIAZEM CD 240 MG CAPSULE PO SCH (09:40)
[2020-07-21] MEDS: FERROUS SULFATE 325 MG TABLET PO SCH ×2 (09:40→20:50)
[2020-07-21] MEDS: carvediloL 3.125 MG TABLET PO SCH ×2 (09:40→17:41)
[2020-07-21] MEDS: CALCIUM (CARBONATE)/VITAMIN D 600 MG-400 UNIT TABLET PO SCH (09:40)
[2020-07-21] MEDS: BRIMONIDINE 0.2% OPH SOLN 5 ML BOTTLE BOTH EYES SCH (09:40)
[2020-07-21] MEDS ORDERED: LATANOPROST 0.005% OPH SOLN 2.5 ML BOTTLE BOTH EYES SCH (21:00)
[2020-07-22] MEDS: ALBUTEROL/IPRATROPIUM 3 ML NEB RESP TX SCH ×3 (00:33→13:20)
[2020-07-22 02:04] LABS: Basophils % 0.4 % (0.0-0.8); Eosinophils # 0.3 10*3/uL (0.0-0.87); Hematocrit 30.9 VOL% (35.7-47.0); Hemoglobin 9.9 GM/DL (12.0-16.0); Immature Granulocytes % 0.4 %; Immature Granulocytes Absolute 0.02 #; Lymphocytes # 2.3 10*3/uL (1.4-4.0); Lymphocytes % 41.3 % (21.3-54.2); Mean Corpuscular Volume 104.7 FL (87-102); Mean Platelet Volume 11.1 FL (9.6-12.0); Monocytes % 13.3 % (1.7-12.7); Neutrophils % 38.6 % (38.7-73.9); Platelet Count 127 T/CUMM (130-400); Red Blood Count 2.95 MC/CUMM (3.8-5.5); White Blood Count 5.7 T/CUMM (4-12)
[2020-07-22 02:20] LABS: Potassium 3.6 MMOL/L (3.5-5.1)
[2020-07-22 02:24] LABS: Eosinophils 4 % (0-10); Hypochromasia Slight; Lymphocytes 36 % (20-55); Macrocytosis Slight; Platelet Estimate Normal; Segmented Neutrophils 49 % (50-85); Total Cells Counted 100
[2020-07-22] MEDS ORDERED: ASPIRIN EC 81 MG TABLET PO SCH (09:00)
[2020-07-22] MEDS: FERROUS SULFATE 325 MG TABLET PO SCH (09:17)
[2020-07-22] MEDS: DILTIAZEM CD 240 MG CAPSULE PO SCH (09:17)
[2020-07-22] MEDS: CALCIUM (CARBONATE)/VITAMIN D 600 MG-400 UNIT TABLET PO SCH (09:17)
[2020-07-22] MEDS: carvediloL 3.125 MG TABLET PO SCH (09:17)
[2020-07-22] MEDS: BRIMONIDINE 0.2% OPH SOLN 5 ML BOTTLE BOTH EYES SCH (10:27)
[2020-07-22 12:09] VITALS: BP 170/64
== END 2020-07-22 15:00 | disposition home or self-care (01) ==
LOC: N.5E → SUATTDRO 07-21 01:14
PROVIDERS: ADMIT Internal Medicine; ATTEND Emergency Medicine